=== PATIENT | male | born 1965 | race Caucasian/White ===

== ENCOUNTER → 2017-08-16 | Outpatient (CLI) | payer BC, SELFPAY | PROVIDERS: Family Provider Family Medicine; Visit Provider Family Medicine | DX: G47.30 Sleep apnea, unspecified (principal); R06.83 Snoring ==

== ENCOUNTER → 2017-10-01 16:55 | Outpatient (CLI) | payer BC, SELFPAY | PROVIDERS: PCP Family Medicine; Visit Provider Family Medicine | DX: R00.2 Palpitations (principal) | CPT/HCPCS: 93225; 93226 ==

== ENCOUNTER → 2017-11-04 07:08 | Outpatient (CLI) | payer BC, SELFPAY ==
--- NOTE | 2017-11-04 07:12 | NM_ITS ---
SPECT MYOCARDIAL PERFUSION SCAN, REST AND STRESS: EXERCISE STRESS: [facility] REVIEW QGS EF AND WALL MOTION EVALUATION: QPS - PERFUSION EVALUATION: HISTORY: Chest pain, SOB, Abnormal EKG PROCEDURE: Rest imaging performed after administration of10.55 millicuries Tc MIBI. Dose administered at7:25 a.m., with imaging thereafter. Stress imaging was then performed [id number] minutes 30 seconds of exercise stress. The patient achieved a heart [id number] with projected heart rate of142 . Resting BP121/67 with stress 160/70. At maximum exercise stress,30.0 millicuries Tc MIBI administered at10:15 a.m. with [id number] minutes thereafter. FINDINGS: Perfusion Evaluation: The single slice spect images as well as the [facility] bull's-eye data summary were reviewed. Wall Motion and Ejection Fraction Evaluation: Gated SPECT review and analysis used to evaluate these features. There is a 55 % left ventricular ejection fraction. There seems to be good wall motion SPECT images reveal mildly decreased activity in the apex and portion of the septum which is slightly worse with rest images. Clinical correlation is advised. It is possible this represents reverse redistribution in the affected estrella. Normal ejection fraction and wall motion with excellent exercise capacity at 10 minutes and 30 seconds IMPRESSION:
--- NOTE | 2017-11-04 08:28 | CA_ITS ---
PROCEDURE: 2-D M-mode and color Doppler study INDICATIONS FOR THE TEST: Chest pain + COPD Heart Murmur Tobacco Smoking Palpitations Fatigue+ Syncope Edema Hypertension Diabetes Mellitus Rheumatic Fever SOB+GARVIN Obesity Hyperlipidemia Family History HD Additional History PALPITATIONS PATIENT INFORMATION HEIGHT:67 WEIGHT:192 GENDER: Male B/P: 2-D/M-MODE INTERPRETATION:138/65 2-D MEASUREMENTS OBSERVED VALUES IN CMS Right Ventricular Dimension (RVDd) 2.7 Interventricular Septum (Thickness)(IVsd) 1.0 Left Ventricular Internal Dimensions(LVIDd) 4.5 Left Ventricular Posterior Wall (Thickness)(LVPWd) 1.0 Aortic Root 3.0 Aortic Cusp Separation 1.9 Left Atrial Dimensions (LAD) 4.2 2D 1. Left atrium is mildly enlarged, left ventricle is normal size, left ventricle wall thickness is upper limit of the normal, there is preserved left ventricle systolic function, visually estimated ejection fraction 50% with no obvious regional wall motion abnormality. 2. The right atrium and right ventricle are mildly enlarged with normal contractility. 3. The aortic valve is minimally thickened and fibrosed. 4. The mitral and tricuspid valve are grossly normal. 5. The pulmonic valve is poorly visualized. 6. No significant pericardial effusion noted. DOPPLER INTERROGATION: Doppler interrogation of the aortic, mitral and tricuspid valvular presence of mild mitral and tricuspid regurgitation, tricuspid regurgitant jet velocity is insufficient for calculation of the right ventricular systolic pressure, diastolic parameters are inconclusive. CONCLUSION: 1. Mild biatrial enlargement, normal left ventricular size, preserved left ventricular systolic function, visually estimated ejection fraction 55% with no obvious regional wall motion abnormality, diastolic parameters are inconclusive. 2. Mildly enlarged right ventricle with normal contractility. 3. Mild mitral and tricuspid regurgitation 4. No significant pericardial effusion noted.
--- NOTE | 2017-11-04 08:51 | HMH.ITSHM ---
CHOLESTEROL MED CELEBREX ALLERGY MED
== END ==
PROVIDERS: Family Provider Family Medicine; PCP Family Medicine; Visit Provider Internal Medicine
DX: R06.09 Other forms of dyspnea (principal); R00.2 Palpitations; I49.3 Ventricular premature depolarization; R06.83 Snoring; R07.89 Other chest pain; E78.4 Other hyperlipidemia; R53.83 Other fatigue; R94.31 Abnormal electrocardiogram [ECG] [EKG]
CPT/HCPCS: 78452; 93017; 93306; A9502

== ENCOUNTER → 2017-11-07 10:24 | Outpatient (CLI) | payer BC, SELFPAY ==
--- NOTE | 2017-11-07 10:26 | CI_ITS ---
Cerebrovascular Exam Indications: 785.9 Bruit. IMPRESSIONS 1. The bilateral vertebral arteries are patent with normal antegrade flow. 2. Study suggests less than 20% stenosis involving the right internal carotid artery and the left internal carotid artery. Carotid duplex study. Complete study and Doppler flow study including spectral analysis, color and mittal scale imaging. Height: Height: 170.2cm. Height: 67in. Weight: Weight: 87.1kg. Weight: 191.6lb. Body mass index: BMI: 30.1kg/m^2. Body surface area: BSA: 2.05m^2. Location: Vascular laboratory. Patient status: Outpatient. Tables: Arterial flow: + +--------+--------+ Location V sys V ed + +--------+--------+ Right CCA - proximal 127cm/s 34.6cm/s + +--------+--------+ Right CCA - distal 113cm/s 36.9cm/s + +--------+--------+ Right ECA 124cm/s -------- + +--------+--------+ Right ICA - proximal 87.4cm/s 38.3cm/s + +--------+--------+ Right ICA - mid 104cm/s 42.1cm/s + +--------+--------+ Right ICA - distal 99.9cm/s 40.9cm/s + +--------+--------+ Right vertebral 49.1cm/s -------- + +--------+--------+ Left CCA - proximal 102cm/s 28.3cm/s + +--------+--------+ Left CCA - distal 101cm/s 27.7cm/s + +--------+--------+ Left ECA 122cm/s -------- + +--------+--------+ Left ICA - proximal 94.9cm/s 40.2cm/s + +--------+--------+ Left ICA - mid 109cm/s 43.4cm/s + +--------+--------+ Left ICA - distal 101cm/s 44cm/s + +--------+--------+ Left vertebral 59.1cm/s -------- + +--------+--------+ Velocity ratios: + + + + + + Right, V sys Right, V ed Left, V sys Left, V ed + + + + + + Max ICA/dist CCA 0.92 1.14 1.08 1.59 + + + + + + (Report amended ) Electronically signed by: Rancho Salomon [id number]
--- NOTE | 2017-11-07 10:26 | CT_ITS ---
CT heart w calcium score CLINICAL INDICATION: ITS.REASON: chest pain ORDERING PHYSICIAN: Lucien Benson MD PATIENT AGE: 52 years COMPARISON: None FINDINGS: Coronary artery calcium score is 0 with no identifiable calcific atherosclerotic lack with very low cardiovascular disease risk. IMPRESSION: Low cardiovascular disease risk with coronary artery calcium score of 0
== END ==
PROVIDERS: Family Provider Family Medicine; PCP Family Medicine; Visit Provider Internal Medicine
DX: R94.31 Abnormal electrocardiogram [ECG] [EKG] (principal); R06.09 Other forms of dyspnea; R00.2 Palpitations; I49.3 Ventricular premature depolarization; R06.83 Snoring; R53.83 Other fatigue; R07.89 Other chest pain; E78.4 Other hyperlipidemia; R09.89 Other specified symptoms and signs involving the circulatory and respiratory systems
CPT/HCPCS: 75571; 93880

== ENCOUNTER → 2017-12-05 08:51 | Outpatient (CLI) | payer BC, SELFPAY ==
--- NOTE | 2017-12-05 08:52 | FL_ITS ---
EXAM: Barium swallow/esophagram. INDICATION: ITS.REASON: difficulty swallowing ORDERING PHYSICIAN: Lucien Benson MD PATIENT AGE: 52 years TECHNIQUE: In the upright position the patient was observed to swallow barium in both the AP and lateral view. The cervical esophagus was examined under fluoroscopy with images obtained. The patient was then placed prone in the right anterior oblique position and was observed to swallow barium with Valsalva technique . FLUOROSCOPY TIME: 59 seconds FINDINGS: There was no evidence of aspiration. There was normal peristalsis. No filling defects or mucosal abnormalities. No masses or strictures. There is a small sliding hiatal hernia IMPRESSION: Small sliding hiatal hernia otherwise negative barium swallow
== END ==
PROVIDERS: Family Provider Family Medicine; PCP Family Medicine; Visit Provider Internal Medicine
DX: R07.9 Chest pain, unspecified (principal); R13.10 Dysphagia, unspecified
CPT/HCPCS: 74220

== ENCOUNTER 2019-09-21 11:46 | Observation (INO) ==
[2019-09-21 12:03] LABS: Basophils # 0.1 K/mm3 (0-0.2); Basophils % 0.9 % (0.1-2.0); Eosinophils # 0.3 K/mm3 (0.0-0.4); Eosinophils % 4.3 % (0.1-12.0); Hematocrit 44.5 % (42.0-52.0); Hemoglobin 14.5 g/dL (14.1-18.0); Lymphocytes % 25.3 % (10-50); Mean Corpuscular HGB Conc 32.7 g/dL (31.8-35.4); Mean Corpuscular Volume 88.5 fl (80-94); Mean Platelet Volume 8.2 fl (7.4-10.4); Monocytes # 0.4 K/mm3 (0.1-1.0); Monocytes % 5.1 % (1.7-9.3); Neutrophils % 64.3 % (37.0-80.0); Platelet Count 309 K/mm3 (142-424); Red Blood Count 5.02 M/mm3 (4.60-6.20); Red Cell Distribution Width 13.7 % (11.5-17.5); White Blood Count 7.8 K/mm3 (4.8-10.8)
[2019-09-21 12:13] LABS: Anion Gap 13.5 mEq/L (5-15); Blood Urea Nitrogen 22 mg/dL (7-18); Calcium 10.4 mg/dL (8.5-10.1); Carbon Dioxide 29 mmol/L (21.0-32.0); Chloride 104 mmol/L (98-107); Glucose 107 mg/dL (74-106); Sodium 142 mmol/L (136-145)
--- NOTE | 2019-09-21 12:25 | Emergency Department Note ---
ED Disposition Clinical Impression: Atypical chest pain, PVC (premature ventricular contraction) Chest pain Qualifiers: Chest pain type: unspecified Qualified Code(s): R07.9 - Chest pain, unspecified Disposition: Admitted as Observation Condition on Discharge: Fair Referrals: Bucky Bonilla MD [Primary Care Provider] - Time of Disposition: 14:43 - Critical Care Critical Care Time: No Attestation: On 09/21/19, the high probability of a clinically significant, sudden or life threatening deterioration of the following system(s) required my full and direct attention, intervention and personal management. The time I documented below is in addition to time spent performing reported procedures but includes the following listed in this critical care notation. Medical Decision Making - Mac Inquiry Pt receiving controlled substance: No Vital Signs: 09/21/19 11:49 09/21/19 12:48 Temperature 98.3 F Temperature Source Oral Pulse Rate [Right Radial] 97 H 95 H Respiratory Rate 18 20 Blood Pressure [Right Arm] 134/94 H 126/62 Blood Pressure Mean [Right Arm] 107 83 Blood Pressure Source [Right Arm] Automatic Cuff Blood Pressure Position [Right Arm] Supine 02 Sat by Pulse Oximetry 97 97 Oxygen Delivery Method Room Air Room Air - Lab Data Lab Results 09/21/19 11:50: WBC 7.8, RBC 5.02, Hgb 14.5, Hct 44.5, MCV 88.5, MCH 29.0, MCHC 32.7, RDW 13.7, Plt Count 309, MPV 8.2, Neut % (Auto) 64.3, Lymph % (Auto) 25.3, [place] % (Auto) 5.1, Eos % (Auto) 4.3, Baso % (Auto) 0.9, Neut # (Auto) 5.0, Lymph # (Auto) 2.0, [place] # (Auto) 0.4, Eos # (Auto) 0.3, Baso # (Auto) 0.1 09/21/19 11:50: Sodium 142, Potassium 4.5, Chloride 104, Carbon Dioxide 29, Anion Gap 13.5, BUN 22 H, Creatinine 1.28, Estimated Creat Clear 79, Estimated GFR 58 L, Est GFR ( Amer) 71, Glucose 107 H, Calcium 10.4 H, Troponin I < 0.02 09/21/19 13:58: Troponin I < 0.02 Result diagrams: 09/21/19 11:50 09/21/19 11:50 Orders (Tests/Meds): ED MEDICATIONS Discontinued Medications Generic Name Dose Route Start Last Admin Trade Name Munira PRN Reason Stop Dose Admin Aspirin 243 mg 09/21/19 12:00 09/21/19 12:01 Aspirin 81mg Chewable Tablet PO 09/21/19 12:01 243 mg ONCE ONE Administration ORDERS Category Date Time Status B-Type Natriuretic Peptide Stat Lab 09/21/19 14:31 Ordered D-Dimer Stat Lab 09/21/19 14:31 Ordered Troponin I Q3H Lab 09/21/19 18:00 Ordered - ECG Data Tracing #1 EKG done at 1146 hrs. shows normal sinus rhythm with a heart rate of 96 bpm, normal P waves, left atrial enlargement, occasional PVCs, normal ID interval, normal QRS pattern, nonspecific ST-T changes. Tracing #2 EKG done at 1311 hrs. shows sinus arrhythmia with frequent PVCs in a bigeminal pattern. Heart rate of [address]-T changes. - Physician Consults Physician Consulted: Dr. Bonilla Time: 14:30 Reason -: Admission Comment/Response: Discussed with Dr. Bonilla, the patient's primary care provider, regarding the patient and plan to get the patient admitted to the floor for cardiology consult and further management. - Reevaluation(s) Time: 14:30 Reevaluation #1: Patient has been stable throughout the course of stay in the ER. Plan to discuss the case with his primary care provider, Dr. Bonilla. Time: 14:40 Reevaluation #2: Advised the patient that we will be admitting him for 24-hour observation. Chest Pain HPI - General Chief Complaint: Chest Pain Stated Complaint: CHEST PAIN Time Seen by Provider: 09/21/19 12:10 Mode of Arrival: Ambulatory Limitations: No Limitations Description of Symptoms (Recalled from ER Triage Doc. by RN): PT LEFT DR BONILLA'S OFFICE AND COME TO ED C/O CP THAT BEGAN THIS MORNING IN HIS LT CHEST AND RADIATED UNDER LT ARMPIT. PT DENIES N/V OR SOA - History of Present Illness HPI narrative: 54-year-old male presents to the emergency department with chief complaint of having sharp pain to the left side of the chest that started at about 8 AM today. It was 6-7 out of 10 initially but it gradually got worse about 8-9 out of 10 when he decided to come to the emergency department. The pain was starting on the lateral corner of the left chest wall near the axilla and would radiate medially towards the center. The pain was sharp in nature. There was no radiation of the pain otherwise. The pain has been around 6-7 out of 10 right now. Denies having any nausea or vomiting. Denies having any syncopal episode. Denies having any dizziness. He states he does have a irregular heartbeat but does not have any other cardiac issues. He does not smoke. Does not do any type of drugs. Does not chew tobacco. He states he does have irregular heartbeat, like missed beats, but he had extensive work-up done for the same about 2 years ago and it was negative for any acute finding. - Related Data Home Medications Medication Instructions Recorded Confirmed fenofibrate 160 mg tablet 160 mg PO DAILY tab 10/24/17 finasteride 5 mg tablet 5 mg PO DAILY tab 10/24/17 [id number]-mv-[id number] 2 mcg PO 10/25/17 gram-200 mcg chewable tablet aspirin 81 mg tablet,delayed 81 mg PO ONCE 11/20/17 release celecoxib 100 mg capsule 100 mg PO BID 11/20/17 Previous Rx's Medication Instructions Recorded bisoprolol fumarate 5 mg tablet 5 mg PO ONCE #30 tab 11/20/17 omeprazole 40 mg capsule,delayed 40 mg PO DAILY #30 cap 11/20/17 release Allergies Allergy/AdvReac Type Severity Reaction Status Date / Time SHRIMP Allergy Unknown I-HIVES Uncoded 11/20/17 11:10 [facility] History - Hepatitis A Screen Drug use history?: No High risk sexual behaviors?: No History of sexually transmitted infection?: No Currently employed?: No Childcare worker?: No Do you have indoor plumbing?: Yes Do you have electricity?: Yes Attestation statement:: This patient has been screened for Hepatitis A risk factors. I have reviewed the patient's past medical history: Yes Medical History: Reports:: Arrhythmia, Hyperlipidemia Denies:: Diabetes Mellitus Type 1, Diabetes Mellitus Type 2 Laterality Cases: Right: Arthroscopy Shoulder Other Surgeries: Yes: Cardiac Catheterization, Colonoscopy, EGD, Other - Social History Smoking Status: Former smoker Tobacco Type: cigarettes Alcohol Intake: never Alcohol Intake Frequency:: holidays/special occasions only Occupational Status: employed Family Hx:: Diabetes, Coronary Artery Disease, Heart Attack ROS Obtained: Yes All systems reviewed & no additional complaints Physical Exam - General General appearance: alert, in no apparent distress - Head Head exam: atraumatic, normocephalic, normal inspection - Eye Eye exam: Present: normal appearance, PERRL, EOMI - ENT ENT exam: Present: normal exam, normal oropharynx, mucous membranes moist, n ormal external ear exam - Neck Neck exam: Present: normal inspection, full ROM, trachea midline - Chest Chest inspection: Present: normal inspection, symmetric chest wall rise. Absent: tenderness - Respiratory Respiratory exam: Present: normal lung sounds bilaterally. Absent: respiratory distress - Cardiovascular Cardiovascular exam: Present: regular rate, normal rhythm. Absent: JVD - Abdominal Exam Abdominal exam: Present: soft, normal bowel sounds. Absent: distention, tenderness, guarding - Back Exam Back exam: Present: normal inspection. Absent: tenderness - Neurological Exam Neurological exam: Present: alert, oriented X3, CN II-XII intact - Psychiatric Psychiatric exam: Present: normal affect, normal mood - Skin Skin exam: Present: warm, dry, intact, normal color
--- NOTE | 2019-09-21 15:32 | Pharmacy Consult Notes ---
[facility] Pharmacy VTE Monitoring - Patient Demographics Admission date: 09/21/19 Report Date: 09/21/19 Time: 15:32 Allergies/Adverse Reactions: Patient Allergies SHRIMP Allergy (Unknown, Uncoded 11/20/17 11:10) I-HIVES Height: 1.7 m Weight: 86.183 kg Patient Problems: Current Active Problems Atypical chest pain (Acute) Chest pain (Acute) PVC (premature ventricular contraction) (Acute) - VTE Risk Labs: VTE Related Lab Results Hgb 14.5 g/dL (14.1-18.0) 09/21/19 11:50 Hct 44.5 % (42.0-52.0) 09/21/19 11:50 Plt Count 309 K/mm3 (142-424) 09/21/19 11:50 BUN 22 mg/dL (7-18) H 09/21/19 11:50 Creatinine 1.28 mg/dL (0.70-1.30) 09/21/19 11:50 Estimated Creat Clear 79 mL/min (50-200) 09/21/19 11:50 - Prophylaxis VTE Prophylaxis Ordered?: Yes Types of VTE Prophylaxis: TEDS Knee High Location of Applied Device: Bilateral Lower Extremeties - VTE Diagnosis Confirmed Treatment or plan recommended: Continue Current Treatment
--- NOTE | 2019-09-21 16:27 | History & Physical Report ---
*Admission Date: 09/21/19 <JordanValerie 09/21/19 16:44> *Chief complaint: Chest pain <Valerie Jordan 09/21/19 16:44> *History of present illness: Mr. Priest is a 54-year-old male with a history of hypertension and GERD who presented to the office of [facility] today after experiencing 2 hours of worsening midsternal chest pain at home which continued after going to work this a.m. He describes the pain as sharp, starting in the mid chest and shooting down the left side. Initially it was intermittent and then became constant. He is short of breath with exertion. He describes skipped beats. He had left arm numbness yesterday which lasted throughout the day. He does have bilateral leg edema which goes down overnight. He does not check his blood pressure at home. With evaluation in the office he was sent to the emergency room for cardiac evaluation. In the emergency room troponin I was normal. Chest x-ray showed no acute changes. He was given 243 mg of aspirin. EKG showed sinus rhythm, left atrial enlargement, occasional PVC, and nonspecific ST-T wave changes. Patient was stable throughout his course of stay in the emergency room; chest pain did not totally resolve. Thus he was admitted for additional cardiac enzymes, observation and treatment. At the time of this exam patient states the sharp chest pains have resolved but he has some remaining midsternal soreness. <Valerie Jordan 09/21/19 16:44> [facility] History Medical History: Reports:: Arrhythmia, Gastroesophageal Reflux Disease(GERD), Hyperlipidemia, Hypertension Denies:: Diabetes Mellitus Type 1, Diabetes Mellitus Type 2 <Valerie Jordan 09/21/19 16:44> *Have you ever received a pneumonia vaccine?: No <Valerie Jordan 09/21/19 16:44> *Have you received a flu vaccine this season?: Yes <Valerie Jordan 09/21/19 16:44> Laterality Cases: Right: Arthroscopy Shoulder <Valerie Jordan 09/21/19 16:44> Other Surgeries: Yes: Cardiac Catheterization, Colonoscopy, EGD, Other <Valerie Jordan 09/21/19 16:44> - *Social History Educational Level: Completed High School <Valerie Jordan 09/21/19 16:44> Smoking Status: Former smoker <JordanValerie 09/21/19 16:44> Tobacco Type: cigarettes <JordanValerie 09/21/19 16:44> Alcohol Intake: never <Jordan,Valerie 09/21/19 16:44> Alcohol Intake Frequency:: holidays/special occasions only <Jordan,Valerie 09/21/19 16:44> *Occupational Status:: other <JordanValerie 09/21/19 16:44> Housing: house <JordanValerie 09/21/19 16:44> Household Members: family <JordanValerie 09/21/19 16:44> *Travel in the last 8 weeks: None <Jordan,Valerie 09/21/19 16:44> Family Hx:: Cancer, Coronary Artery Disease, Diabetes, Hypertension, Stroke <Jordan,Valerie 09/21/19 16:44> Review of Systems - Constitutional Reports lack of energy (For the past month), Denies fever(s), Denies headache(s) <JulianValerie 09/21/19 16:44> - Eyes Reports blurry vision <JulianValerie 09/21/19 16:44> - ENT Denies ear pain, Denies sore throat <JulianValerie 09/21/19 16:44> - *Cardiovascular Reports chest pain, Reports shortness of breath with activity, Reports leg swelling (Usually resolves overnight) <Valerie Jordan 09/21/19 16:44> - *Respiratory Reports shortness of breath with activity, Denies chest congestion, Denies cough, Denies coughing up blood <Valerie Jordan 09/21/19 16:44> - *Gastrointestinal Denies abdominal pain, Denies constipation, Denies heartburn, Denies bright, red blood in stools, Denies nausea, Denies vomiting <Valerie Jordan 09/21/19 16:44> - *Genitourinary Denies difficulty urinating <Valerie Jordan 09/21/19 16:44> - *Musculoskeletal Denies abnormal walking, Denies joint pain <Valerie Jordan 09/21/19 16:44> Meds Home Medications Medication Instructions Recorded Confirmed Type fenofibrate 160 mg tablet 160 mg PO DAILY tab 10/24/17 09/21/19 History finasteride 5 mg tablet 5 mg PO DAILY tab 10/24/17 09/21/19 History aspirin 81 mg tablet,delayed 81 mg PO ONCE 11/20/17 09/21/19 History release bisoprolol fumarate 5 mg tablet 5 mg PO ONCE #30 tab 11/20/17 09/21/19 Rx celecoxib 100 mg capsule 100 mg PO BID 11/20/17 09/21/19 History omeprazole 40 mg capsule,delayed 40 mg PO DAILY #30 cap 11/20/17 09/21/19 Rx release <ValentinaBucky Heriberto - 09/21/19 17:43> Allergies Allergy/AdvReac Type Severity Reaction Status Date / Time SHRIMP Allergy Unknown I-HIVES Uncoded 11/20/17 11:10 <Bucky Montgomery - 09/21/19 17:43> Exam Vital signs and Labs for Last 24 Hours: Temp Pulse Resp BP Pulse Ox 98.2 F 47 L 16 175/83 H 99 09/21/19 16:00 09/21/19 16:00 09/21/19 16:00 09/21/19 16:00 09/21/19 16:00 Laboratory Results - last 24 hr 09/21/19 11:50: WBC 7.8, RBC 5.02, Hgb 14.5, Hct 44.5, MCV 88.5, MCH 29.0, MCHC 32.7, RDW 13.7, Plt Count 309, MPV 8.2, Neut % (Auto) 64.3, Lymph % (Auto) 25.3, [place] % (Auto) 5.1, Eos % (Auto) 4.3, Baso % (Auto) 0.9, Neut # (Auto) 5.0, Lymph # (Auto) 2.0, [place] # (Auto) 0.4, Eos # (Auto) 0.3, Baso # (Auto) 0.1 09/21/19 11:50: Sodium 142, Potassium 4.5, Chloride 104, Carbon Dioxide 29, Anion Gap 13.5, BUN 22 H, Creatinine 1.28, Estimated Creat Clear 79, Estimated GFR 58 L, Est GFR ( Amer) 71, Glucose 107 H, Calcium 10.4 H, Troponin I < 0.02 09/21/19 11:50: D-Dimer < 100 09/21/19 11:50: B-Natriuretic Peptide 09/21/19 13:58: Troponin I < 0.02 <ValentinaBucky Heriberto - 09/21/19 17:43> Temp Pulse Resp BP Pulse Ox 98.2 F 76 16 131/84 97 09/21/19 15:22 09/21/19 15:22 09/21/19 15:22 09/21/19 15:22 09/21/19 12:48 Laboratory Results - last 24 hr 09/21/19 11:50: WBC 7.8, RBC 5.02, Hgb 14.5, Hct 44.5, MCV 88.5, MCH 29.0, MCHC 32.7, RDW 13.7, Plt Count 309, MPV 8.2, Neut % (Auto) 64.3, Lymph % (Auto) 25.3, [place] % (Auto) 5.1, Eos % (Auto) 4.3, Baso % (Auto) 0.9, Neut # (Auto) 5.0, Lymph # (Auto) 2.0, [place] # (Auto) 0.4, Eos # (Auto) 0.3, Baso # (Auto) 0.1 09/21/19 11:50: Sodium 142, Potassium 4.5, Chloride 104, Carbon Dioxide 29, Anion Gap 13.5, BUN 22 H, Creatinine 1.28, Estimated Creat Clear 79, Estimated GFR 58 L, Est GFR ( Amer) 71, Glucose 107 H, Calcium 10.4 H, Troponin I < 0.02 09/21/19 11:50: D-Dimer < 100 09/21/19 11:50: B-Natriuretic Peptide 09/21/19 13:58: Troponin I < 0.02 <Valerie Jordan - 09/21/19 16:44> I & O for Last 24 hours: Intake & Output 09/19/19 09/20/19 09/21/19 09/22/19 11:59 11:59 11:59 11:59 Weight 190 lb 198 lb 7 oz <Bucky Montgomery - 09/21/19 17:43> Intake & Output 02/01/09/20/19 09/21/19 09/22/19 11:59 11:59 11:59 11:59 Weight 190 lb 198 lb 7 oz <Valerie Jordan 09/21/19 16:44> Radiology Reports for the Last 24 Hours: 09/21/2019 chest x-ray No acute changes <Valerie Jordan 09/21/19 16:44> - Constitutional no acute distress <Valerie Jordan 09/21/19 16:44> Comments: Lying in bed and appears comfortable <[facility] 09/21/19 16:44> - *Routine HEENT Exam Head: Present: normocephalic, atraumatic <Kay Jordanhy 09/21/19 16:44> Eye: Present: PERRL. Absent: conjunctival icterus, scleral injection <Kay Jordanhy 09/21/19 16:44> ENT: Present: mucous membranes moist, oropharynx clear <Kay Jordanhy 09/21/19 16:44> - *Routine Neck Exam Present: supple. Absent: normal carotid upstroke, lymphadenopathy, thyromegaly <[facility] 09/21/19 16:44> - *Routine Respiratory Exam Present: CTA bilaterally (Anteriorly and posteriorly) <Kay Jordanhy 09/21/19 16:44> - *Routine Cardiovascular Exam Present: RRR <Kay Jordanhy 09/21/19 16:44> Comments: Occasional ectopy <Kay Jordanhy 09/21/19 16:44> - *Routine Abdominal Exam Present: soft, normoactive bowel sounds. Absent: tenderness, distended <Kay Jordanhy 09/21/19 16:44> - *Routine Extremities Exam Present: pulses intact. Absent: edema, calf tenderness <Kay Jordanhy 09/21/19 16:44> - *Routine Neurological Exam Present: alert, oriented X3 <Kay Jordanhy 09/21/19 16:44> Assessment and Plan (1) Hypertension Current visit: Yes Status: Acute Category: Medical Code(s): I10 - Essential (primary) hypertension (2) Chest pain Current visit: Yes Status: Acute Qualifiers: Chest pain type: unspecified Qualified Code(s): R07.9 - Chest pain, unspecified Category: Medical Code(s): R07.9 - Chest pain, unspecified (3) PVC (premature ventricular contraction) Current visit: Yes Status: Acute Category: Medical Code(s): I49.3 - Ventricular premature depolarization (4) Abnormal EKG Current visit: No Status: Acute Category: Medical Code(s): R94.31 - Abnormal electrocardiogram [ECG] [EKG] <Bucky Montgomery - 09/21/19 17:43> (1) Hypertension Current visit: Yes Status: Acute Category: Medical Code(s): I10 - Essential (primary) hypertension (2) Chest pain Current visit: Yes Status: Acute Qualifiers: Chest pain type: unspecified Qualified Code(s): R07.9 - Chest pain, unspecified Category: Medical Code(s): R07.9 - Chest pain, unspecified (3) PVC (premature ventricular contraction) Current visit: Yes Status: Acute Category: Medical Code(s): I49.3 - Ventricular premature depolarization (4) Abnormal EKG Current visit: No Status: Acute Category: Medical Code(s): R94.31 - Abnormal electrocardiogram [ECG] [EKG] <Valerie Jordan - 09/21/19 16:23> - Assessment and plan all Dx Assessment and Plan for all problems:: Patient seen and examined. Concur with assessment and plan. Will consult cardiology for probable GXT. <Bucky Montgomery - 09/21/19 17:43> Patient has been admitted to acute care. Initial 2 troponin I's have been negative. He has been started on bisoprolol and a PPI. Blood pressure is improved to 131/84. We will continue to monitor overnight. <Valerie Jordan - 09/21/19 16:44>
--- NOTE | 2019-09-21 17:47 | Electrocardiograph Report ---
APPROVED REPORT Exam: Resting ECG HR:92 bpm ECG Measurements Heart Rate 92 AXES NJ 148 P 64 QRSd 94 QRS 35 QT 342 T4 QTc 422 <Conclusion> Sinus rhythm with frequent premature ventricular complexes in a pattern of bigeminy Otherwise normal ECG Electronically signed by : Johny Sprague, 09/21/2019 17:47:19
[2019-09-22 08:03] LABS: Albumin Level 4.3 gm/dL (3.4-5.0); Albumin/Globulin Ratio 1.3 (1.1-1.8); Anion Gap 13.4 mEq/L (5-15); Bilirubin,Total 0.5 mg/dL (0.2-1.0); Chol/HDL Ratio 4.7 (1-3.5); Globulin 3.2 gm/dl (1.3-3.2); Total Protein,Serum 7.5 gm/dL (6.4-8.2)
--- NOTE | 2019-09-22 08:14 | Progress Note ---
<Valerie Jordan - Last Filed: 09/22/19 08:11> Internal Medicine - PN: Subj *Date: 09/22/19 *Time: 08:11 Interval history: Patient states he has had no further chest pain. He still describes left chest soreness. He denies shortness of breath. He has slept at intervals between blood draws. He is eating without difficulty. Cholesterol profile completed revealing LDL of 164, HDL 54, triglycerides 181. Troponin I normal x4 Exam Vital signs and Labs for Last 24 Hours: Temp Pulse Resp BP Pulse Ox 98.0 F 63 16 128/65 98 09/22/19 04:00 09/22/19 04:00 09/22/19 04:00 09/22/19 04:00 09/22/19 04:00 Laboratory Results - last 24 hr 09/21/19 11:50: WBC 7.8, RBC 5.02, Hgb 14.5, Hct 44.5, MCV 88.5, MCH 29.0, MCHC 32.7, RDW 13.7, Plt Count 309, MPV 8.2, Neut % (Auto) 64.3, Lymph % (Auto) 25.3, [place] % (Auto) 5.1, Eos % (Auto) 4.3, Baso % (Auto) 0.9, Neut # (Auto) 5.0, Lymph # (Auto) 2.0, [place] # (Auto) 0.4, Eos # (Auto) 0.3, Baso # (Auto) 0.1 09/21/19 11:50: Sodium 142, Potassium 4.5, Chloride 104, Carbon Dioxide 29, Anion Gap 13.5, BUN 22 H, Creatinine 1.28, Estimated Creat Clear 79, Estimated GFR 58 L, Est GFR ( Amer) 71, Glucose 107 H, Calcium 10.4 H, Troponin I < 0.02 09/21/19 11:50: D-Dimer < 100 09/21/19 11:50: B-Natriuretic Peptide 22 09/21/19 13:58: Troponin I < 0.02 09/21/19 18:17: Troponin I < 0.02 09/22/19 00:10: Troponin I < 0.02 09/22/19 07:26: Sodium 143, Potassium 4.4, Chloride 105, Carbon Dioxide 29, Anion Gap 13.4, BUN 25 H, Creatinine 1.43 H, Estimated Creat Clear 74, Estimated GFR 51 L, Est GFR ( Amer) 62, Glucose 101, Calcium 10.0, Total Bilirubin 0.5, AST 24, ALT 67, Alkaline Phosphatase 50, Total Protein 7.5, Albumin 4.3, Globulin 3.2, Albumin/Globulin Ratio 1.3, Triglycerides 181, Cholesterol 254 H, LDL Cholesterol 164 H, VLDL Cholesterol 36, HDL Cholesterol 54, Cholesterol/HDL Ratio 4.7 H I & O for Last 24 hours: Intake & Output 09/19/19 09/20/19 09/21/19 09/22/19 11:59 11:59 11:59 11:59 Weight 190 lb 198 lb 7.009 oz - Constitutional no acute distress Comments: Lying in bed comfortably. He is completed his breakfast. - *Routine Respiratory Exam Present: CTA bilaterally (Anteriorly and posteriorly) - *Routine Cardiovascular Exam Present: RRR - *Routine Abdominal Exam Present: soft, normoactive bowel sounds. Absent: tenderness - *Routine Extremities Exam Present: pulses intact. Absent: edema, calf tenderness - *Routine Neurological Exam Present: alert, oriented X3 Assessment and Plan (1) Hypertension Current visit: Yes Status: Acute Category: Medical Code(s): I10 - Essential (primary) hypertension (2) Chest pain Current visit: Yes Status: Acute Qualifiers: Chest pain type: unspecified Qualified Code(s): R07.9 - Chest pain, unspecified Category: Medical Code(s): R07.9 - Chest pain, unspecified (3) PVC (premature ventricular contraction) Current visit: Yes Status: Acute Category: Medical Code(s): I49.3 - Ventricular premature depolarization (4) Abnormal EKG Current visit: No Status: Acute Category: Medical Code(s): R94.31 - Abnormal electrocardiogram [ECG] [EKG] - Assessment and plan all Dx Assessment and Plan for all problems:: Cardiology to see patient this a.m. Will follow their recommendation. <Bucky Montgomery - Last Filed: 09/22/19 08:36> Internal Medicine - PN: Subj *Date: 09/22/19 *Time: 08:35 Exam Vital signs and Labs for Last 24 Hours: Temp Pulse Resp BP Pulse Ox 98.1 F 57 L 16 117/70 96 09/22/19 08:00 09/22/19 08:00 09/22/19 08:00 09/22/19 08:00 09/22/19 08:00 Laboratory Results - last 24 hr 09/21/19 11:50: WBC 7.8, RBC 5.02, Hgb 14.5, Hct 44.5, MCV 88.5, MCH 29.0, MCHC 32.7, RDW 13.7, Plt Count 309, MPV 8.2, Neut % (Auto) 64.3, Lymph % (Auto) 25.3, [place] % (Auto) 5.1, Eos % (Auto) 4.3, Baso % (Auto) 0.9, Neut # (Auto) 5.0, Lymph # (Auto) 2.0, [place] # (Auto) 0.4, Eos # (Auto) 0.3, Baso # (Auto) 0.1 09/21/19 11:50: Sodium 142, Potassium 4.5, Chloride 104, Carbon Dioxide 29, Anion Gap 13.5, BUN 22 H, Creatinine 1.28, Estimated Creat Clear 79, Estimated GFR 58 L, Est GFR ( Amer) 71, Glucose 107 H, Calcium 10.4 H, Troponin I < 0.02 09/21/19 11:50: D-Dimer < 100 09/21/19 11:50: B-Natriuretic Peptide 22 09/21/19 13:58: Troponin I < 0.02 09/21/19 18:17: Troponin I < 0.02 09/22/19 00:10: Troponin I < 0.02 09/22/19 07:26: Total Creatine Kinase 97, CK-MB (CK-2) 1.0, CK-MB (CK-2) Rel Index 1.0, Troponin I < 0.02 09/22/19 07:26: Sodium 143, Potassium 4.4, Chloride 105, Carbon Dioxide 29, Anion Gap 13.4, BUN 25 H, Creatinine 1.43 H, Estimated Creat Clear 74, Estimated GFR 51 L, Est GFR ( Amer) 62, Glucose 101, Calcium 10.0, Total Bilirubin 0.5, AST 24, ALT 67, Alkaline Phosphatase 50, Total Protein 7.5, Albumin 4.3, Globulin 3.2, Albumin/Globulin Ratio 1.3, Triglycerides 181, Cholesterol 254 H, LDL Cholesterol 164 H, VLDL Cholesterol 36, HDL Cholesterol 54, Cholesterol/HDL Ratio 4.7 H I & O for Last 24 hours: Intake & Output 09/19/19 09/20/19 09/21/19 09/22/19 11:59 11:59 11:59 11:59 Weight 190 lb 198 lb 7.009 oz Assessment and Plan (1) Hypertension Current visit: Yes Status: Acute Category: Medical Code(s): I10 - [place] l (primary) hypertension (2) Chest pain Current visit: Yes Status: Acute Qualifiers: Chest pain type: unspecified Qualified Code(s): R07.9 - Chest pain, unspecified Category: Medical Code(s): R07.9 - Chest pain, unspecified (3) PVC (premature ventricular contraction) Current visit: Yes Status: Acute Category: Medical Code(s): I49.3 - Ventricular premature depolarization (4) Abnormal EKG Current visit: No Status: Acute Category: Medical Code(s): R94.31 - Abnormal electrocardiogram [ECG] [EKG] - Assessment and plan all Dx Assessment and Plan for all problems:: Patient seen and examined. Concur with above.
[2019-09-22 08:15] LABS: Creatine Kinase 97 U/L (39-308)
--- NOTE | 2019-09-22 09:57 | Consult Report ---
History of Present Illness Consult date: 09/22/19 Requesting physician: Bucky Montgomery Consult reason: chest pain Chief complaint: chest pain, dizziness Additional Medical History:: 1. History of irregular heartbeats A. Cardiovascular work-up, 10/2017 Cartoid U/S showed: IMPRESSIONS 1. The bilateral vertebral arteries are patent with normal antegrade flow. 2. Study suggests less than 20% stenosis involving the right internal carotid artery and the left internal carotid artery. CT Calcium Score: FINDINGS: Coronary artery calcium score is 0 with no identifiable calcific atherosclerotic lack with very low cardiovascular disease risk. IMPRESSION: Low cardiovascular disease risk with coronary artery calcium score of 0 ECHO: CONCLUSION: 1. Mild biatrial enlargement, normal left ventricular size, preserved left ventricular systolic function, visually estimated ejection fraction 55% with no obvious regional wall motion abnormality, diastolic parameters are inconclusive. 2. Mildly enlarged right ventricle with normal contractility. 3. Mild mitral and tricuspid regurgitation 4. No significant pericardial effusion noted. Stress test showed: Wall Motion and Ejection Fraction Evaluation: Gated SPECT review and analysis used to evaluate these features. There is a 55 % left ventricular ejection fraction. There seems to be good wall motion SPECT images reveal mildly decreased activity in the apex and portion of the septum which is slightly worse with rest images. Clinical correlation is advised. It is possible this represents reverse redistribution in the affected estrella. Normal ejection fraction and wall motion with excellent exercise capacity at 10 minutes and 30 seconds 2. Hypertension 3. Hyperlipidemia 4. GERD History of present illness: Mr. Priest is a 54-year-old male with a history of hypertension and GERD who presented to the office of [facility] today after experiencing 2 hours of worsening midsternal chest pain at home which continued after going to work this a.m. He describes the pain as sharp, starting in the mid chest and shooting down the left side. Initially it was intermittent and then became constant. He is short of breath with exertion. He describes skipped beats. He had left arm numbness yesterday which lasted throughout the day. He does have bilateral leg edema which goes down overnight. He does not check his blood pr essure at home. With evaluation in the office he was sent to the emergency room for cardiac evaluation. In the emergency room troponin I was normal. Chest x-ray showed no acute changes. He was given 243 mg of aspirin. EKG showed sinus rhythm, left atrial enlargement, occasional PVC, and nonspecific ST-T wave changes. Patient was stable throughout his course of stay in the emergency room; chest pain did not totally resolve. Thus he was admitted for additional cardiac enzymes, observation and treatment. At the time of this exam patient states the sharp chest pains have resolved but he has some remaining midsternal soreness. The above per Valerie Jordan APRN for Dr. Montgomery Patient's cardiac troponins have returned normal x4 EKG is sinus rhythm with no acute ST segment changes [facility] History Medical History: Reports:: Arrhythmia, Gastroesophageal Reflux Disease(GERD), Hyperlipidemia, Hypertension Denies:: Diabetes Mellitus Type 1, Diabetes Mellitus Type 2 *Have you ever received a pneumonia vaccine?: No *Have you received a flu vaccine this season?: Yes Laterality Cases: Right: Arthroscopy Shoulder Other Surgeries: Yes: Cardiac Catheterization, Colonoscopy, EGD, Other - *Social History Educational Level: Completed High School Smoking Status: Former smoker Tobacco Type: cigarettes Alcohol Intake: never Alcohol Intake Frequency:: holidays/special occasions only *Occupational Status:: other Housing: house Household Members: family *Travel in the last 8 weeks: None Family Hx:: Cancer, Coronary Artery Disease, Diabetes, Hypertension, Stroke Meds Home Medications Medication Instructions Recorded Confirmed Type fenofibrate 160 mg tablet 160 mg PO DAILY tab 10/24/17 09/21/19 History finasteride 5 mg tablet 5 mg PO DAILY tab 10/24/17 09/21/19 History aspirin 81 mg tablet,delayed 81 mg PO ONCE 11/20/17 09/21/19 History release bisoprolol fumarate 5 mg tablet 5 mg PO ONCE #30 tab 11/20/17 09/21/19 Rx celecoxib 100 mg capsule 100 mg PO BID 11/20/17 09/21/19 History omeprazole 40 mg capsule,delayed 40 mg PO DAILY #30 cap 11/20/17 09/21/19 Rx release Allergies Allergy/AdvReac Type Severity Reaction Status Date / Time SHRIMP Allergy Unknown I-HIVES Uncoded 11/20/17 11:10 Review of Systems - Review of Systems Review of systems:: pertinent systems reviewed and negative unless documented below - *Cardiovascular Reports chest pain, Reports irregular heart rhythm - *Respiratory Denies shortness of breath - *Gastrointestinal Denies change in stools - *Genitourinary Denies blood in urine - *Musculoskeletal Denies joint pain, Denies back pain - *Neurologic Denies abnormal walking, Denies headache(s) Exam Vital signs and Labs for Last 24 Hours: Temp Pulse Resp BP Pulse Ox 98.1 F 57 L 16 117/70 96 09/22/19 08:00 09/22/19 08:00 09/22/19 08:00 09/22/19 08:00 09/22/19 08:00 Laboratory Results - last 24 hr 09/21/19 11:50: WBC 7.8, RBC 5.02, Hgb 14.5, Hct 44.5, MCV 88.5, MCH 29.0, MCHC 32.7, RDW 13.7, Plt Count 309, MPV 8.2, Neut % (Auto) 64.3, Lymph % (Auto) 25.3, [place] % (Auto) 5.1, Eos % (Auto) 4.3, Baso % (Auto) 0.9, Neut # (Auto) 5.0, Lymph # (Auto) 2.0, [place] # (Auto) 0.4, Eos # (Auto) 0.3, Baso # (Auto) 0.1 09/21/19 11:50: Sodium 142, Potassium 4.5, Chloride 104, Carbon Dioxide 29, Anion Gap 13.5, BUN 22 H, Creatinine 1.28, Estimated Creat Clear 79, Estimated GFR 58 L, Est GFR ( Amer) 71, Glucose 107 H, Calcium 10.4 H, Troponin I < 0.02 09/21/19 11:50: D-Dimer < 100 09/21/19 11:50: B-Natriuretic Peptide 22 09/21/19 13:58: Troponin I < 0.02 09/21/19 18:17: Troponin I < 0.02 09/22/19 00:10: Troponin I < 0.02 09/22/19 07:26: Total Creatine Kinase 97, CK-MB (CK-2) 1.0, CK-MB (CK-2) Rel Index 1.0, Troponin I < 0.02 09/22/19 07:26: Sodium 143, Potassium 4.4, Chloride 105, Carbon Dioxide 29, Anion Gap 13.4, BUN 25 H, Creatinine 1.43 H, Estimated Creat Clear 74, Estimated GFR 51 L, Est GFR ( Amer) 62, Glucose 101, Calcium 10.0, Total Bilirubin 0.5, AST 24, ALT 67, Alkaline Phosphatase 50, Total Protein 7.5, Albumin 4.3, Globulin 3.2, Albumin/Globulin Ratio 1.3, Triglycerides 181, Cholesterol 254 H, LDL Cholesterol 164 H, VLDL Cholesterol 36, HDL Cholesterol 54, Cholesterol/HDL Ratio 4.7 H I & O for Last 24 hours: Intake & Output 09/19/19 09/20/19 09/21/19 09/22/19 11:59 11:59 11:59 11:59 Intake Total 360 / 360 Balance 360 / 360 Weight 190 lb 198 lb 7.009 oz - *Routine HEENT Exam Head: Present: normocephalic Eye: Present: EOMI, PERRL ENT: Present: mucous membranes moist - *Routine Neck Exam Present: supple. Absent: JVD, carotid bruit - *Routine Respiratory Exam Present: CTA bilaterally. Absent: accessory muscle use, rales, rhonchi, wheezes - *Routine Cardiovascular Exam Present: RRR. Absent: murmur, gallop, rubs - *Routine Abdominal Exam Present: soft. Absent: tenderness, distended, guarding - *Routine Extremities Exam Absent: edema, calf tenderness - *Routine Neurological Exam Present: alert, oriented X3, moving all extremities Assessment and Plan (1) Hypertension Current visit: Yes Status: Acute Category: Medical Code(s): I10 - Essential (primary) hypertension (2) Chest pain Current visit: Yes Status: Acute Qualifiers: Chest pain type: unspecified Qualified Code(s): R07.9 - Chest pain, unspecified Category: Medical Code(s): R07.9 - Chest pain, unspecified (3) PVC (premature ventricular contraction) Current visit: Yes Status: Acute Category: Medical Code(s): I49.3 - Ventricular premature depolarization (4) Abnormal EKG Current visit: No Status: Acute Category: Medical Code(s): R94.31 - Abnormal electrocardiogram [ECG] [EKG] - Assessment and plan all Dx Assessment and Plan for all problems:: 1. Prolonged chest pain with normal troponins x4 and EKG with no acute changes. Recommend proceeding with routine exercise stress test and if normal then patient can be discharged home for outpatient follow-up. 2. Continue home medications and aspirin 81 mg daily bisoprolol, fenofibrate and omeprazole therapy.
[2019-09-22 11:57] VITALS: BP 120/77
--- NOTE | 2019-09-23 07:17 | Cardiology Report ---
APPROVED REPORT Exam: Exercise Treadmill Technologist: Ayde Mclaughlin Ht: 5 ft 7 in Wt: 198 lbs BSA: 2.01 m2 HR: 73 bpm BP: 131/61 mmHg Indications: Chest Pain Medical History Medications: Omeprazole,,,,, Aspirin,,,,, FeNOfibrate,,,,, BisOPROLOL,,,,, Celecoxib,,,,, Finasteride,,,,, Stress Test Details Test: Reid HR Resting HR: 68 bpmMax Heart Rate (APMHR): 165 bpm Max HR Achieved: 136 bpmTarget HR (85% APMHR): 140 bpm % of APMHR: 82 Recovery HR: 84 bpm BP Resting BP: 131.0/61.0 mmHg Max BP: 170.0/70.0 mmHg Recovery BP: 128.0/72.0 mmHg ECG Clinical Exercise duration: 10:43 min Highest Stage Achieved: Exercise capacity: 12.8 METs Stress ECG Conclusion Resting ECG: Normal sinus rhythm, occasional junctional beat, ST-T abnormalities inferiorly and in V6. Patient exercised 10:43 on Reid Protocol. Test stopped due to shortness of air, leg fatigue. Symptoms: No chest pain. Arrhythmias/Ectopy: Occasional junctional beat in stage I and recovery. ST-T Changes: Exaggeration of baseline ST-T abnormalities. Conclusion: No chest pain with good exercise tolerance. Non-diagnostic stress ECGs due to baseline abnormalities. Test Summary REST.......Sitting REST.......Standing REST09:200.00.068.131/ 61.. Stage 101:0010.01.792.... Stage 102:0010.01.799.... Stage 103:0010.01.7100.136/ 68.. Stage 201:0012.02.5103.... Stage 202:0012.02.5107.... Stage 203:0012.02.5110.140/ 84.. Stage 301:0014.03.4112.... Stage 302:0014.03.4115.... Stage 303:0014.03.4117.150/ 80.. Stage 401:0016.04.6.... Stage 401:4316.04.5...Stop exercise at 10:43 FIUPCIGR40:000.00.0111.170/ 70.. ZWHIJYOJ69:000.00.098.170/ 70.. PCOGSPBV67:000.00.092.142/ 79.. KLVGZCZZ43:000.00.086.142/ 79.. DKYIOCRZ31:000.00.084.128/ 72.. SFTBIYRU06:250.00.080.128/ 72.. Electronically signed by : Adi Bernal, 09/23/2019 07:17:04
--- NOTE | 2019-09-24 08:16 | Discharge Summary ---
General - General Admission date:: 09/21/19 Discharge date: 09/22/19 HPI HPI: Mr. Priest is a 54-year-old male with a history of hypertension and GERD who presented to the office of [facility] after experiencing 2 hours of worsening midsternal chest pain at home which continued after going to work. He described the pain as sharp, starting in the mid chest and shooting down the left side. Initially it was intermittent and then became constant. He was short of breath with exertion. He described skipped beats. He had left arm numbness the previous day which lasted throughout the day. He described bilateral leg edema which resolved overnight. He did not check his blood pressure at home. With evaluation in the office he was sent to the emergency room for cardiac evaluation. In the emergency room troponin I was normal. Chest x-ray showed no acute changes. He was given 243 mg of aspirin. EKG showed sinus rhythm, left atrial enlargement, occasional PVC, and nonspecific ST-T wave changes. Patient was stable throughout his course of stay in the emergency room; chest pain did not totally resolve. Thus he was admitted for additional cardiac enzymes, observation and treatment. At the time of exam patient stated the sharp chest pains had resolved but he had some remaining midsternal chest soreness. Hospital Course Hospital Course: After admission patient had no further chest pain. Chest soreness did resolve. He continually denied shortness of breath. He was seen by cardiology who noted normal troponins x4 and EKG with no acute changes with recommendation for stress test before discharge. On 09/22/2019 patient completed cardiac stress test. Results revealed no chest pain with good exercise tolerance and nondiagnostic stress EKGs due to baseline abnormalities. On this date patient was discharged to home in stable and satisfactory condition. He was to remain on aspirin, bisoprolol as well as his Protonix and low-fat low-cholesterol diet. He was to follow-up with Dr. Montgomery on 09/29/[address] Benson on 10/06/2019. Objective Vital signs: Temp Pulse Resp BP Pulse Ox 98.2 F 63 16 120/77 97 09/22/19 11:55 09/22/19 11:55 09/22/19 11:55 09/22/19 11:55 09/22/19 11:55 Narrative: Exam Vital signs and Labs for Last 24 Hours: Temp Pulse Resp BP Pulse Ox 98.0 F 63 16 128/65 98 09/22/19 04:00 09/22/19 04:00 09/22/19 04:00 09/22/19 04:00 09/22/19 04:00 Laboratory Results - last 24 hr 09/21/19 11:50: WBC 7.8, RBC 5.02, Hgb 14.5, Hct 44.5, MCV 88.5, MCH 29.0, MCHC 32.7, RDW 13.7, Plt Count 309, MPV 8.2, Neut % (Auto) 64.3, Lymph % (Auto) 25.3, [place] % (Auto) 5.1, Eos % (Auto) 4.3, Baso % (Auto) 0.9, Neut # (Auto) 5.0, Lymph # (Auto) 2.0, [place] # (Auto) 0.4, Eos # (Auto) 0.3, Baso # (Auto) 0.1 09/21/19 11:50: Sodium 142, Potassium 4.5, Chloride 104, Carbon Dioxide 29, Anion Gap 13.5, BUN 22 H, Creatinine 1.28, Estimated Creat Clear 79, Estimated GFR 58 L, Est GFR ( Amer) 71, Glucose 107 H, Calcium 10.4 H, Troponin I < 0.02 09/21/19 11:50: D-Dimer < 100 09/21/19 11:50: B-Natriuretic Peptide 22 09/21/19 13:58: Troponin I < 0.02 09/21/19 18:17: Troponin I < 0.02 09/22/19 00:10: Troponin I < 0.02 09/22/19 07:26: Sodium 143, Potassium 4.4, Chloride 105, Carbon Dioxide 29, Anion Gap 13.4, BUN 25 H, Creatinine 1.43 H, Estimated Creat Clear 74, Estimated GFR 51 L, Est GFR ( Amer) 62, Glucose 101, Calcium 10.0, Total Bilirubin 0.5, AST 24, ALT 67, Alkaline Phosphatase 50, Total Protein 7.5, Albumin 4.3, Globulin 3.2, Albumin/Globulin Ratio 1.3, Triglycerides 181, Cholesterol 254 H, LDL Cholesterol 164 H, VLDL Cholesterol 36, HDL Cholesterol 54, Cholesterol/HDL Ratio 4.7 H I & O for Last 24 hours: Intake & Output 09/19/19 09/20/19 09/21/19 09/22/19 11:59 11:59 11:59 11:59 Weight 190 lb 198 lb 7.009 oz - Constitutional no acute distress Comments: Lying in bed comfortably. He is completed his breakfast. - *Routine Respiratory Exam Present: CTA bilaterally (Anteriorly and posteriorly) - *Routine Cardiovascular Exam Present: RRR - *Routine Abdominal Exam Present: soft, normoactive bowel sounds. Absent: tenderness - *Routine Extremities Exam Present: pulses intact. Absent: edema, calf tenderness - *Routine Neurological Exam Present: alert, oriented X3 Results Completed studies during hospitalization [Text1]: 09/21/19 CXR IMPRESSION: No acute findings. Stress test 09/22/19 Stress Test Details Test: Reid HR Resting HR: 68 bpm Max Heart Rate (APMHR): 165 bpm Max HR Achieved: 136 bpm Target HR (85% APMHR): 140 bpm % of APMHR: 82 Recovery HR: 84 bpm BP Resting BP: 131.0/61.0 mmHg Max BP: 170.0/70.0 mmHg Recovery BP: 128.0/72.0 mmHg ECG Clinical Exercise duration: 10:43 min Highest Stage Achieved: Exercise capacity: 12.8 METs Stress ECG Conclusion Resting ECG: Normal sinus rhythm, occasional junctional beat, ST-T abnormalities inferiorly and in V6. Patient exercised 10:43 on Reid Protocol. Test stopped due to shortness of air, leg fatigue. Symptoms: No chest pain. Arrhythmias/Ectopy: Occasional junctional beat in stage I and recovery. ST-T Changes: Exaggeration of baseline ST-T abnormalities. Conclusion: No chest pain with good exercise tolerance. Non-diagnostic stress ECGs due to baseline abnormalities. DS: Diagnosis - Discharge Diagnosis (1) Hypertension Status: Acute (2) Chest pain Status: Acute (3) PVC (premature ventricular contraction) Status: Acute (4) Abnormal EKG Status: Acute Discharge Plan - Patient Discharge Instructions ACTIVITY: Continue current activity DIET: low fat, low cholesterol Patient Instructions: DI for Chest Pain - Follow up Plan Follow up with: Bucky Montgomery MD [Primary Care Provider] - 09/29/19 9:30 am Lucien Bneson MD [Staff Physician] - 10/06/19 8:50 am Disposition: Home, Self-[facility] Medications: Home Medications Medication Instructions Recorded Confirmed Type fenofibrate 160 mg tablet 160 mg PO DAILY tab 10/24/17 09/21/19 History finasteride 5 mg tablet 5 mg PO DAILY tab 10/24/17 09/21/19 History aspirin 81 mg tablet,delayed 81 mg PO DAILY 11/20/17 09/22/19 History release celecoxib 100 mg capsule 100 mg PO BID 11/20/17 09/21/19 History Omeprazole [Omeprazole 40mg 40 mg PO DAILY 09/22/19 09/22/19 History Capsule] Prescriptions/Medication Reconciliation: Continued fenofibrate 160 mg tablet 160 mg PO DAILY tab finasteride 5 mg tablet 5 mg PO DAILY tab No Action Omeprazole [Omeprazole 40mg Capsule] 40 mg PO DAILY - Problem Reconciliation Problems Reviewed?: Yes
== END 2019-09-22 14:50 | disposition home or self-care (01) ==
LOC: ER 11:46 → 2ND 11:46
PROVIDERS: ADMIT Family Medicine; ATTEND Family Medicine
CPT/HCPCS: 36415; 71020; 71046; 80048; 80053; 80061; 82550; 82553; 83880; 84484; 85025; 85378; 93005; 93017; 99284; G0378

== ENCOUNTER → 2020-12-27 11:20 | Outpatient (CLI) | payer BC, OTHER, SELFPAY ==
--- NOTE | 2020-12-27 11:27 | XR_ITS ---
PROCEDURE: XR LUMBAR SPINE MIN 4V CLINICAL INDICATION: LOW BACK PAIN COMPARISON: No exams were available for comparison FINDINGS: No acute fractures or listhesis. Multilevel degenerative changes of the lumbar spine with endplate sclerosis, loss of disc height at L2-3, and facet joint arthropathy. Bone density is normal. Paravertebral soft tissues are unremarkable. IMPRESSION: Degenerative changes of the lumbar spine. No acute fractures or listhesis. Dictated by: Nano Cohen 12/27/2020 13:21 Nano Cohen in [facility] 12/27/2020 13:21
== END ==
PROVIDERS: PCP Family Medicine; Visit Provider Family Medicine
DX: M54.5 Low back pain (principal)
CPT/HCPCS: 72110

== ENCOUNTER → 2021-06-28 09:41 | Outpatient (CLI) | payer BC, OTHER, SELFPAY ==
--- NOTE | 2021-06-28 09:52 | XR_ITS ---
PROCEDURE: XR CHEST PORTABLE CLINICAL HISTORY: COVID TESTING COMPARISON: DX CXR CHEST(2 VIEWS-NOT PORTABLE) from 07/29/2017 CR XR CHEST 2V from 09/21/2019 FINDINGS: The cardiomediastinal silhouette and pulmonary vascularity are within normal limits. The lungs are clear without infiltrates, suspicious nodules, or pleural effusions. No acute bony abnormalities. IMPRESSION: No acute findings. Dictated by: Rancho Salomon MD 06/28/2021 10:17 Rancho Salomon MD in [facility] 06/28/2021 10:17
[2021-06-28 10:09] LABS: Basophils # 0.1 K/mm3 (0-0.2); Basophils % 0.7 % (0.1-2.0); Eosinophils # 0.3 K/mm3 (0.0-0.4); Eosinophils % 3.7 % (0.1-12.0); Hematocrit 43.4 % (42.0-52.0); Hemoglobin 14.4 g/dL (14.1-18.0); Lymphocytes # 1.5 K/mm3 (0.7-4.5); Lymphocytes % 19.4 % (10-50); Mean Corpuscular HGB Conc 33.3 g/dL (31.8-35.4); Mean Corpuscular Hemoglobin 29.6 pg (27.0-31.2); Mean Corpuscular Volume 88.9 fl (80-94); Mean Platelet Volume 8.4 fl (7.4-10.4); Monocytes # 0.6 K/mm3 (0.1-1.0); Monocytes % 7.1 % (1.7-9.3); Neutrophils # 5.3 K/mm3 (1.8-7.8); Neutrophils % 68.9 % (37.0-80.0); Platelet Count 315 K/mm3 (142-424); Red Blood Count 4.88 M/mm3 (4.60-6.20); Red Cell Distribution Width 13.9 % (11.5-17.5); White Blood Count 7.7 K/mm3 (4.8-10.8)
== END ==
PROVIDERS: PCP Family Medicine; Visit Provider Physician Assistant
DX: Z20.822 Contact with and (suspected) exposure to COVID-19 (principal); U07.1 COVID-19
CPT/HCPCS: 36415; 71045; 85025; C9803; U0003; U0005

== ENCOUNTER 2021-11-09 16:25 | Emergency (ER) | payer OTHER, SELFPAY ==
--- NOTE | 2021-11-09 17:03 | XR_ITS ---
PROCEDURE INFORMATION: Exam: XR Right Finger(s) Exam date and time: 11/09/2021 5:12 PM Age: 56 years old Clinical indication: Injury or trauma; Other: Laceration; Right; Middle finger; Additional info: Finger laceration TECHNIQUE: Imaging protocol: XR Right fingers. Views: Minimum 2 views. Total images: 3 COMPARISON: DX HANDR3 HAND-RT 3 VIEWS 07/29/2017 8:52 AM FINDINGS: Bones/joints: Comminuted fracture involving the tip of the distal phalangeal tuft of the right 3rd finger with about 1-2 mm displacement of the small comminution fragments. Soft tissues: Soft tissue laceration at the tip of the 3rd finger. No gross foreign body. IMPRESSION: Fracture of the distal phalangeal tuft the 3rd finger with overlying soft tissue laceration.
[2021-11-09 17:08] VITALS: BP 162/90; PULSE 97; RESP 17; TEMP 36.9; O2SAT 97; BMI 29.7
--- NOTE | 2021-11-09 18:08 | [facility].EDGENADL ---
ED Disposition Clinical Impression: Laceration, Open fracture of tuft of distal phalanx of finger Disposition: Home, Self-Care Condition on Discharge: Good Instructions: DI for Laceration Repair Additional Instructions: Okay to bathe, wear the aluminum finger splint when you are not showering. Take antibiotics as directed. Follow-up with hand team this upcoming Saturday, they will contact you with appointment time. Continue taking Tylenol Motrin as needed for pain. Return to the ED with new, worsening, concerning symptoms. These may include but not limited to fevers, worsening pain, bleeding, swelling, redness, purulent discharge. Sutures are absorbable. Prescriptions: cephALEXin [Cephalexin 500mg Tab] 500 mg PO Q6H 7 Days #28 tab Transmission Status: Pending to [id number] Referrals: Bucky Montgomery MD [Primary Care Provider] - [facility] [Other] - Critical Care Critical Care Time: No Attestation: On 11/09/21, the high probability of a clinically significant, sudden or life threatening deterioration of the following system(s) required my full and direct attention, intervention and personal management. The time I documented below is in addition to time spent performing reported procedures but includes the following listed in this critical care notation. Medical Decision Making - Medical Records Medical records reviewed: Yes: I reviewed the patient's medical records. - Mac Inquiry Pt receiving controlled substance: No Vital Signs: 11/09/21 17:08 Temperature 98.5 F Temperature Source Oral Pulse Rate [Left Radial] 97 H Respiratory Rate 17 Blood Pressure [Right Arm] 162/90 H Blood Pressure Mean [Right Arm] 114 02 Sat by Pulse Oximetry 97 Oxygen Delivery Method Room Air Orders (Tests/Meds): ED MEDICATIONS Discontinued Medications Generic Name Dose Route Start Last Admin Trade Name Freq PRN Reason Stop Dose Admin Cefazolin Sodium 2 gm/ Sodium 50 mls @ 100 mls/hr 11/09/21 18:55 11/09/21 19:31 Chloride IV 11/09/21 19:24 100 mls/hr ONCE ONE Administration - Radiology Data #1 Image(s): Hand Image Reviewed: Yes I reviewed the patient's radiology results, Yes I reviewed the patient's radiology image FINDINGS: Bones/joints: Comminuted fracture involving the tip of the distal phalangeal tuft of the right 3rd finger with about 1-2 mm displacement of the small comminution fragments. Soft tissues: Soft tissue laceration at the tip of the 3rd finger. No gross foreign body. IMPRESSION: Fracture of the distal phalangeal tuft the 3rd finger with overlying soft tissue laceration. Medical Decision Narrative: 56-year-old male with no prior past medical history presenting to the ED with a finger laceration that he sustained at work. Differential diagnoses include tuft fracture, laceration, cellulitis, contusion, subungual hematoma. Given this work-up will include x-ray of the right hand. vital signs are stable, patient was given Tylenol Motrin for pain. Labs not indicated. Tetanus shot was updated. XR concerning for a tuft fracture of the DIP on his right third digit. Will anesthetize the finger and then perform laceration repair. See procedure note for laceration repair. Removed avulsed distal portion of patient's cuticle, repaired surrounding avulsion injury with five-point 0 absorbable sutures. No active hemorrhage noted. Will irrigate and place an aluminum finger splint in extension. Spoke with [facility] hand team, faxed over facesheet. They will arrange appointment with their team on Saturday and contact him with an appointment time. Will discharge with oral Keflex, he did receive tetanus as well as 2 g of IV Ancef in the ED. Patient comfortable this plan, discussed return precautions, laceration care. All questions answered prior to discharge. General Adult HPI - General Chief complaint: Wound/Laceration Stated complaint: AO03/24@16
--- NOTE | 2021-11-09 18:19 | PC.NURSE ---
ED MD at
--- NOTE | 2021-11-09 18:28 | PC.NURSE ---
ED MD at bedside to suture
--- NOTE | 2021-11-09 19:07 | PC.NURSE ---
MICHELLE PHILLIPS speaking with Dr. Sorto at hand team
--- NOTE | 2021-11-09 19:51 | PC.NURSE ---
pt antibiotics finished
[2021-11-09 19:58] VITALS: BP 160/88; PULSE 89; RESP 18; TEMP 36.7; O2SAT 99
== END 2021-11-09 20:09 | disposition home or self-care (01) ==
PROVIDERS: Emergency Provider Emergency Medicine; PCP Family Medicine
DX: S62.612B Displaced fracture of proximal phalanx of right middle finger, initial encounter for open fracture (principal); R07.9 Chest pain, unspecified; R00.2 Palpitations; R06.00 Dyspnea, unspecified; R93.1 Abnormal findings on diagnostic imaging of heart and coronary circulation; I10 Essential (primary) hypertension; I49.3 Ventricular premature depolarization; E78.5 Hyperlipidemia, unspecified; K21.9 Gastro-esophageal reflux disease without esophagitis; Z79.52 Long term (current) use of systemic steroids; Z79.899 Other long term (current) drug therapy; Z91.013 Allergy to seafood; Z87.891 Personal history of nicotine dependence; W20.8XXA Other cause of strike by thrown, projected or falling object, initial encounter; Y92.89 Other specified places as the place of occurrence of the external cause; Y99.0 Civilian activity done for income or pay; Z82.49 Family history of ischemic heart disease and other diseases of the circulatory system; Z80.9 Family history of malignant neoplasm, unspecified; Z83.3 Family history of diabetes mellitus
CPT/HCPCS: 12002; 29130; 73140; 96365; 96374; 99283; 99284